=== PATIENT | male | born 1955 | race Caucasian/White ===

== ENCOUNTER 2018-03-19 12:21 | Observation (INO) | payer OTHER ==
[2018-03-19] MEDS ORDERED: LR 1,000 ML IV ONE (12:43)
[2018-03-19] MEDS ORDERED: LIDOCAINE 1% 2 ML INJ ID PRN (12:43)
--- NOTE | 2018-03-19 14:03 | PDANEPAE ---
ANE Past Medical History - Cardiovascular History Hx Hypertension: No Hx Arrhythmias: No Hx Chest Pain: No Hx Coronary Artery / Peripheral Vascular Disease: No Hx CHF / Valvular Disease: No Hx Palpitations: No - Pulmonary History Hx COPD: No Hx Asthma/Reactive Airway Disease: No Hx Recent Upper Respiratory Infection: No Hx Oxygen in Use at Home: No Hx Sleep Apnea: Yes Sleep Apnea Screening Result - Last Documented: Negative - Neurologic History Hx Cerebrovascular Accident: No Hx Seizures: No Hx Dementia: No - Endocrine History Hx Diabetes: No - Renal History Hx Renal Disorders: No - Liver History Hx Hepatic Disorders: No - Neurological & Psychiatric Hx Hx Neurological and Psychiatric Disorders: Yes Neurological / Psychiatric History Comment: anxiety - Cancer History Hx Cancer: No - Congenital Disorder History Hx Congenital Disorders: No - GI History Hx Gastrointestinal Disorders: Yes Gastrointestinal History Comment: severe reflux - Other Health History Other Health History: none - Chronic Pain History Chronic Pain: No - Surgical History Prior Surgeries: none in last 5 yrs. just endoscopies ANE Review of Systems Review of Systems: - Exercise capacity METS (RN): 6 METS ANE Patient History - Allergies Allergies/Adverse Reactions: Quinolones Allergy (Verified 03/19/18 12:59) Other-Enter Comments - Home Medications Home Medications: ALPRAZolam [Xanax 1 MG (*)] 1 mg PO HS 02/28/18 [Last Taken 03/18/18] Atorvastatin Calcium [Lipitor 20 mg (*)] 20 mg PO HS 02/28/18 [Last Taken ] Herbals/Supplements -Info Only 1 ea PO DAILY 02/28/18 [Last Taken 03/12/18] Levothyroxine [Synthroid 175 mcg (*)] 175 mcg PO DAILY06 02/28/18 [Last Taken ] Multivitamins [Multivitamin (*)] 1 each PO DAILY 02/28/18 [Last Taken 03/12/18] Omeprazole 40 mg PO DAILY18 02/28/18 [Last Taken 03/18/18] - NPO status NPO Since - Liquids (Date): 03/18/18 NPO Since - Liquids (Time): 23:00 NPO Since - Solids (Date): 03/18/18 NPO Since - Solids (Time): 23:00 - Smoking Hx Smoking Status: Former smoker - Family Anes Hx Family Hx Anesthesia Complications: none ANE Labs/Vital Signs - Vital Signs Blood Pressure: 110/76 Heart Rate: 44 Respiratory Rate: 17 O2 Sat (%): 95 Height: 160.02 cm Weight: 65.771 kg ANE Physical Exam - Airway Mallampati Score: Class 1 - ASA Status ASA Status: II ANE Anesthesia Plan Anesthesia Plan: general endotracheal anesthesia
[2018-03-19] MEDS ORDERED: BUPIVACAINE/EPI 0.5% 30 ML SDV ONE (14:14)
--- NOTE | 2018-03-19 14:22 | PDHPUP ---
History & Physical Update H&P update statement: This history and physical update is based on an assessment of the patient which was completed after admission or registration (within 24 hours), but prior to the surgery/procedure. H&P update: H&P reviewed & patient examined, no change in patient's condition since H&P completed
[2018-03-19] MEDS ORDERED: HYDROCODONE/APAP 5/325 TAB PO PRN (14:23)
[2018-03-19] MEDS ORDERED: ONDANSETRON 4 MG/2 ML VIAL IVP PRN ×2 (14:23→18:15)
[2018-03-19] MEDS ORDERED: ACETAMINOPHEN 325 MG TAB PO PRN (14:23)
[2018-03-19] MEDS ORDERED: ZOLPIDEM TARTRATE 5 MG TAB PO PRN (14:23)
[2018-03-19] MEDS ORDERED: HYDROmorphONE/DILAUDID 1 MG/ML INJ IVP PRN (14:23)
--- NOTE | 2018-03-19 14:26 | POSTOPPROG ---
Post Op Note Date of Operation: 03/19/18 Surgeon: Louis Raza Technical Report Writer: Heaven Addison Anesthesiologist: Padmini Anesthesia: GET(General Endotracheal) Pre-op Diagnosis: Refractory GERD Post-op Diagnosis: same Procedure: laparoscopic Luis fundoplication Findings: hiatal hernia, LUQ omental adhesions Inf/Abcess present in the surg proc area at time of surgery?: No EBL: Minimal Complications: no immediate Specimen(s): none
[2018-03-19] MEDS ORDERED: MIDAZOLAM 2 MG/2 ML VIAL ONE (16:09)
[2018-03-19] MEDS ORDERED: fentaNYL 100 MCG/2 ML INJ ONE (16:09)
[2018-03-19] MEDS ORDERED: PROPOFOL 200 MG/20 ML VIAL ONE (16:10)
[2018-03-19] MEDS ORDERED: ONDANSETRON 4 MG/2 ML VIAL ONE (16:11)
[2018-03-19] MEDS ORDERED: METOCLOPRAMIDE 10 MG/2 ML VIAL ONE (16:11)
[2018-03-19] MEDS ORDERED: ROCURONIUM 50 MG/5 ML VIAL ONE (16:11)
[2018-03-19] MEDS ORDERED: KETOROLAC 30 MG/1 ML SDV ONE (17:03)
[2018-03-19] MEDS ORDERED: PROMETHAZINE HCL 25 MG/ML INJ IVP PRN (18:15)
[2018-03-19] MEDS ORDERED: LR 500 ML IV PRN (18:15)
[2018-03-19] MEDS ORDERED: fentaNYL 100 MCG/2 ML INJ IVP PRN (18:15)
[2018-03-19] MEDS ORDERED: NALOXONE HCL 0.4 MG/ML INJ IVP PRN (18:15)
--- NOTE | 2018-03-19 18:17 | POSTANESTH ---
Post Anesthetic Evaluation Cardiovascular Status: Normal, Stable Respiratory Status: Normal, Stable Level of Consciousness/Mental Status: Can Participate in Eval, Mildly Sleepy, Arousable Pain Control: Adequate, Prn Tx Ordered Nausea/Vomiting Control: Adequate, Prn Tx Ordered Complications Possibly Related to Anesthesia: None Noted
[2018-03-19] MEDS: KETOROLAC 15 MG/1 ML SDV IVP SCH ×2 (18:35→23:22)
--- NOTE | 2018-03-19 19:02 | GOP ---
[f rep st] OPERATIVE REPORT DATE OF OPERATION: 03/19/2018 SURGEON: Louis Raza MD SHIFT SUPERINTENDENT: Heaven Addison PA-C. ANESTHESIA: General. ANESTHESIOLOGIST: Dr. Washington. PREOPERATIVE DIAGNOSIS: Symptomatic gastroesophageal reflux disease. POSTOPERATIVE DIAGNOSIS: Symptomatic gastroesophageal reflux disease. PROCEDURE PERFORMED: Laparoscopic Luis fundoplication. 62-year-old male with a longstanding history of symptomatic reflux. He has been on long-standing medications as his desire is to try and discontinue drugs as possible. He is undergoing surgical intervention at this time. Preoperative PH and manometry show no contraindication to a 360 wrap. He is undergoing the aforementioned procedure at this time. Risks and benefits were explained including bleeding, infection, nerve injury, dysphagia, bowel injury, open conversion, fundoplication failure, need for additional surgical intervention as well as a role for a breakthrough medication. All questions were answered. He desires to proceed. A surgical garment fitter is standard and necessary and customary for the safe performance of this procedure. DESCRIPTION OF PROCEDURE: After general anesthesia was induced, the abdomen was injected with 0.5% Marcaine with epinephrine. A Veress needle was placed in the supraumbilical position followed by 5 mm trocar placement. Four additional 5 mm ports were placed across the upper abdomen. A liver retractor was applied from the right lateral port site. The hiatus showed a small hiatal defect with a portion of the fundus trapped inside. The fundus was reduced back in the abdominal cavity. A retroesophageal tunnel was created allowing for exposure of both left and right crura. After opening the lesser omentum, the posterior vagus nerve was identified and preserved throughout the dissection. Of note, there were large amounts of left upper quadrant omental adhesions to the abdominal wall as well as inflammatory type omental scarification along the greater curvature. Portion of the upper greater curvature was taken using the Harmonic Scalpel. The fundus was able to be completely untethered from the esophageal hiatus as well as left upper quadrant. A retroesophageal tunnel was easily created. The fundus was passed posteriorly. This was held in place without undue tension with the shoe shine maneuver. The crural closure was performed with 2 interrupted Ethibond sutures. The 360 degree wrap was completed, incorporating the esophagus into the closure. This was done with 3 interrupted Ethibond sutures. The superior most suture did incorporate the diaphragmatic hiatus into the closure. Satisfactory hemostasis was assured. The wrap was confirmed to be completely floppy with easy passage of instruments posteriorly. The trocars were removed under direct visualization after release of the liver tractor. The wounds were closed with Monocryl suture followed by Dermabond. The patient was taken to recovery room awake, uneventfully. /[id number]/MODL MTDD
[2018-03-19] MEDS ORDERED: DIAZEPAM 5 MG TAB PO PRN (19:33)
[2018-03-19] MEDS ORDERED: ALPRAZolam 1 MG TAB PO SCH (22:45)
[2018-03-19] MEDS ORDERED: ATORVASTATIN CALCIUM 20 MG TAB PO SCH (22:45)
[2018-03-20 04:11] VITALS: BP 127/73
[2018-03-20] MEDS ORDERED: LEVOTHYROXINE 175 MCG TAB PO SCH (06:00)
[2018-03-20] MEDS: KETOROLAC 15 MG/1 ML SDV IVP SCH (07:16)
--- NOTE | 2018-03-20 08:05 | SOAPPROG ---
SOAP Progress Note Assessment/Plan: Assessment: no issues overnight. left shoulder pain only. no nausea. hungry. avss. comfortable. abd soft. incis clean. doing well. home today. frequent small soft meals - adv as able. f/u 2 weeks as scheduled. Plan: 03/20/18 08:04 Objective: Vital Signs Temp Pulse Resp BP Pulse Ox 37.3 C 75 16 127/73 H 89 L 03/20/18 04:00 03/20/18 04:00 03/20/18 04:00 03/20/18 04:00 03/20/18 04:00 03/19/18 03/20/18 03/21/18 05:59 05:59 05:59 Intake Total 1260 Output Total 255 Balance 1005 ICD10 Worksheet Patient Problems: Problems Problem Status Onset GERD (gastroesophageal reflux disease) Acute
[2018-03-20] MEDS ORDERED: MULTIVITAMINS 1 EACH TAB PO SCH (09:00)
[2018-03-20] MEDS ORDERED: PANTOPRAZOLE SODIUM 40 MG TAB PO SCH (09:00)
--- NOTE | 2018-03-20 09:37 | ASMTCMCOM ---
CM Note CM Note Notes: Reviewed chart, no needs identified. Pt admitted for scheduled surgery, will dc home w/support of . CM available for any changes. DC Plan: Independent Date Signed: 03/20/2018 09:36 AM Electronically Signed By:Amparo Campos RN
--- NOTE | 2018-03-20 09:38 | ASMTLACE ---
[facility] Length of stay for Answers: 1 day current admission Acuity / Level of Answers: No Care: Did the patient have an inpatient admission? Comorbidities - select Answers: Other Notes: GERD all that apply # of Emergency department Answers: 0 visits in the last 6 months Social determinants Answers: Mental health diagnosis (anxiety, depression, pers onality disorders, etc.) Score: 5 Date Signed: 03/20/2018 09:37 AM Electronically Signed By:Amparo Campos RN
== END 2018-03-20 09:38 | disposition home or self-care (01) ==
LOC: F3E 12:21 → INTOOBSV 12:21 → F3E 19:40
PROVIDERS: ADMIT Surgery; ATTEND Surgery
PROC: 0DV44CZ Restriction of Esophagogastric Junction with Extraluminal Device, Percutaneous Endoscopic Approach (ICD-10-PCS; principal; 2018-03-19 13:30)
DX: K44.9 Diaphragmatic hernia without obstruction or gangrene (principal); K21.9 Gastro-esophageal reflux disease without esophagitis
CPT/HCPCS: 43280; G0378; J1885; J2250; J2405; J2704; J2765; J3010